=== PATIENT | female | born 1950 | race Hispanic/Latino ===

== ENCOUNTER 2017-04-04 16:21 | Emergency (ER) | payer MEDICARE, BC ==
--- NOTE | 2017-04-04 16:27 | ERNOTE ---
Neuro HPI ER Record Date of Service: 04/04/17 Presenting Symptoms: facial droop, other - left-sided facial droop onset this morning glucose on admission was 111 Time Seen by Provider: 04/04/17 16:25 Source: patient Allergies/Adverse Reactions: Allergies Allergy/AdvReac Type Severity Reaction Status Date / Time No Known Allergies Allergy Verified 04/04/17 16:32 Home Medications: HOME MEDICATIONS Cetirizine HCl [Zyrtec] 10 mg PO DAILY 11/09/15 [Last Taken 11/14/15] Titi [facility] 1 tab PO DAILY 11/09/15 [Last Taken 11/14/15] Lisinopril [Zestril] 10 mg PO QAM 30 Days #30 tablet 04/04/17 [Last Taken Unknown] Methylprednisolone [Medrol Dosepak] 4 mg PO DAILY #1 tab.ds.pk 04/04/17 [Last Taken Unknown] Naproxen Sodium [Aleve] 220 mg PO TID 04/04/17 [Last Taken Unknown] - History of Present Illness Narrative: Patient brought in by her daughter for concern of left facial droop. Mom states that she noted it first thing in the morning around 8 inch of throughout the day it continued and she called her daughter sure daughter went to her house picked her up and brought her in for evaluation proximal and 1627. Date (Duration): 04/04/17 Time (Timing): 08:00 Last Date Known Well: 04/04/17 Last Time Known Well: 08:00 Onset: other - onset greater than 3 hours this morning. She noted the symptoms. Severity: mild Context: fall, other - patient has known recently elevated blood pressure but on no medications. 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 Additional Deficits: Present: other - no other symptoms Baseline Cognition: Present: alert, oriented x 4 Baseline Gait: Present: walks w/o assistance Associated Symptoms: Reports: none - CT report some pain behind her left ear. She is pending a doctor's appointment.. Denies: fever/chills, chest pain, neck/ back pain Prior Treament: Denies: recently seen, treated by physician, recently hospitalized Review of Systems - Narrative Narrative: Per HPI patient has had no ongoing symptoms. She reports that she's been trying to exercise regularly to try to [place] away some of the weight that she has gained to stay healthy. She was identified of borderline to elevated blood pressure. - Review of Systems Constitutional: Present: no symptoms reported EYE: Present: no symptoms reported ENT: Present: no symptoms reported, See HPI Respiratory: Present: no symptoms reported Cardiology: Present: no symptoms reported Gastrointestinal/Abdominal: Present: no symptoms reported Genitourinary: Present: no symptoms reported Musculoskeletal: Present: no symptoms reported Skin: Present: no symptoms reported Neurological: Present: other - facial droop left side Endocrine: Present: no symptoms reported Hematologic/Lymphatic: Present: no symptoms reported Psych: Present: no symptoms reported All Other Systems: All systems neg except as marked - I'm discharging him to - Patient's Past Medical History Patient History - Medical: Chronic Pain, Other Patient History - Cardiac/Respiratory: Hypertension Patient History - Cancer: No Hx of Cancer Patient History - Surgical Procedures: Cataracts, Colonoscopy, D & C Patient History - Other: None - Family History Father Family History - Medical: , No pertinent hx Family History - Cardiac/Respiratory: No pertinent hx Mother Family History - Medical: No pertinent hx Family History - Cardiac/Respiratory: No pertinent hx Brother Family History - Cardiac/Respiratory: Other Sister Family History - Medical: No pertinent hx Family History - Cardiac/Respiratory: No pertinent hx - Social History Abuse History: No History of abuse Psych History: No pertinent hx [place] Coma Scale - Assess Eye Opening: Spontaneous Motor: Obeys Commands Verbal: Oriented - Total Coma Scale Total: 15 Initial Stroke Assessment - NIH Stroke Scale LOC Questions (Year and Age): Answers both correctly LOC Commands (open/close eyes/fist): Performs both correctly Lateral Gaze Paresis: None Facial Palsy: Minor paralysis Right Arm Motor (10 sec hold): No drift Left Arm Motor (10 sec hold): No drift Right Leg Motor (5 sec hold): No drift Left Leg Motor (5 sec hold): No drift Limb Ataxia (finger/nose heel/hoffmann): Absent Sensory Loss (pinprick arms/legs/face): No sensory loss Language Aphasia (description/naming/reading): No aphasia; normal Dysarthria (speech clarity): Normal articulation Neglect Inattention (visual/tactile/auditory/spatial/person): No neglect Secondary Stroke Assessment - NIH Stroke Scale Level of Consciousness: Alert LOC Questions (Year and Age): Answers both correctly LOC Commands (open/close eyes/fist): Performs both correctly Lateral Gaze Paresis: None Facial Palsy: Normal movement Right Arm Motor (10 sec hold): No drift Left Arm Motor (10 sec hold): No drift Right Leg Motor (5 sec hold): No drift Left Leg Motor (5 sec hold): No drift Limb Ataxia (finger/nose heel/hoffmann): Absent If present, ataxia in:: Right arm Language Aphasia (description/naming/reading): No aphasia; normal Dysarthria (speech clarity): Normal articulation Neglect Inattention (visual/tactile/auditory/spatial/person): No neglect - Results of Tests Evidence of acute ischemic stroke: No CT result is negative: Yes Platelets >100,000/ Hemogram normal: Yes PT<15 or INR <1.7: Yes PTT normal: Yes ED Progress - Results and Orders Patient's Lab Results:: I have reviewed the patient's lab results. - Vital Signs Patient's Vital Signs:: I have reviewed the patient's vital signs. - EKG EKG: NSR, other - normal ecg. EKG Comments: nsr 74 bpm - X-Ray X-Ray #1 X-Ray: chest Interpretation: Reviewed by me - normal - CT/Ultrasound CT/Ultrasound Narrative: [facility] PATIENT RADIOLOGY STUDY REPORT Patient Patient Name:TYE BHAKTA Date: 1950 Sex: F Order Number: [id number] Unique Exam ID: [id number] Exam Requested: HEADW/O - CT Head W/O * Date Scheduled: 04-04-2017 04:28 PM Study Priority: Requesting Service: Requesting Physician: Chelsey Jackson Reason for Exam: TIA Possible CVA Radiological Report : [facility] [address] [place] [address] [address] [place] [address] NAME: TYE BHAKTA : 1950 MR #: [id number] CC: Chelsey Jackson DO LOC: ER ADM DATE: X-RAY REPORT [id number] CT/CT Head W/O * Exam Date: 04/04/2017 16:28 Ordering Physician: Chelsey Jackson HISTORY: TIA Possible CVA Additional history from technologist: Right-sided facial droop and numbness. Worsening today. TECHNIQUE: Multiple noncontrast axial CT images of the head were obtained. Dose reduction techniques using the adjustment of the mA and/or kV according to patient size and/ or use of AEC or iterative reconstruction were used in the acquisition of this exam. COMPARISON: Previous brain MRI from 11/19/2014 FINDINGS: CT Head W/O *: Age-related cortical atrophy and periventricular white matter chronic ischemic changes are present. Intracranial atherosclerotic calcifications noted. No acute intracranial hemorrhage. No midline shift or herniation. Tate and white matter differentiation is grossly intact. No obvious soft tissue swelling or scalp hematoma noted. Skull grossly intact, without signs of depressed skull fracture. Visualized portions of the paranasal sinuses are clear. Mastoid air cells are grossly clear. IMPRESSION: 1. No acute intracranial hemorrhage or mass effect. 2. Additional comments as above. Ordering provider Dr. Jackson was informed regarding the above results via telephone on 04/04/2017 4: 40 PM. Electronically signed by Wanda White M.D.. Wanda White MD Dict: 04/04/17 1636 Typed: 04/04/17 1636/ 04/04/17 1641 04/04/17 1644 , Approved by: WANDA WHITE Approval Date: 04-04-2017 Approval Time: 04:36 PM - Progress/Reassessment Progress:: Improved - no neurologic deficit progression Plan - Plan Plan: NEEDs Blood pressure control Departure Clinical Impression: Molina's palsy, Essential hypertension - Departure Disposition: Home self-care Condition: Good Instructions: Molina Palsy, Managing Your High Blood Pressure Additional Instructions: methylprednisolone for Molina Palsy Referrals: Jewell Torrez MD [Primary Care Provider] - 04/17/17 Prescriptions: Lisinopril [Zestril] 10 mg PO QAM 30 Days #30 tablet Methylprednisolone [Medrol Dosepak] 4 mg PO DAILY #1 tab.ds.pk
[2017-04-04 16:50] LABS: Hematocrit 43.3 % (37.0-47.0); Hemoglobin 14.6 gm/dL (12.5-16.0); Mean Cell Volume 88.9 fl (78-100); Mean Corpuscular Hgb Conc 33.7 g/dl (32-36); Mean Platelet Volume 9.2 fl (6.0-9.5); Neutrophil # 5.1 K/mm3 (1.3-6.0); Neutrophil % 58.1 % (42-75.0); Platelet Count 238 K/mm3 (150-450); Red Blood Count 4.87 M/mm3 (4.2-5.4); Red Cell Distribution Width 13.7 % (11.5-14.0); White Blood Count 8.8 K/mm3 (4.0-10.5)
[2017-04-04 17:08] LABS: Prothrombin Time (Patient) 9.5 Seconds (9.0-11.0)
[2017-04-04 17:10] LABS: INR 0.95 INR (0.90-1.10); Partial Thrombolplastin Time 26.8 Seconds (24-32)
[2017-04-04 17:11] LABS: Albumin * 3.8 gm/dl (3.4-5.0); Anion Gap 11.5 mmol/L (6.8-13.8); BUN/Creatinine Ratio 26.8 (9.0-21.6); Bilirubin, Total 0.3 mg/dL (0.0-1.1); Ca. Corrected For Albumin 9.2 mg/dL (8.4-10.2); Calcium * 9.4 mg/dL (7.9-10.9); Carbon Dioxide 27.9 mmol/L (24-32.6); Potassium 3.4 mmol/L (3.4-4.6); Total Protein 7.6 gm/dL (6.2-8.2)
[2017-04-04] MEDS ORDERED: LISINOPRIL 10 MG TABLET PO ONE (21:00)
[2017-04-04] MEDS ORDERED: LISINOPRIL 10 MG TABLET ONE (21:06)
[2017-04-04 21:35] VITALS: BP 180/71
== END 2017-04-04 21:30 | disposition home or self-care (01) ==
LOC: ER 16:21
DX: G51.0 Bell's palsy (principal); I10 Essential (primary) hypertension; G89.29 Other chronic pain